=== PATIENT | female | born 1995 | race Caucasian/White ===

== ENCOUNTER → 2020-05-28 11:01 | Outpatient (CLI) | payer OTHER, SELFPAY ==
[2020-05-28 12:36] LABS: Add Manual Diff / Slide Review NO; Basophils Absolute Auto 0 /uL (0-100); Basophils Percent Auto 0.2 % (0-2); Eosinophils Absolute Auto 0 /uL (0-450); Eosinophils Percent Auto 0.5 % (2-4); Hematocrit 41.9 % (36-46); Lymphocytes Absolute Auto 1200 /uL (1100-4500); Lymphocytes Percent Auto 17.9 % (25-40); Mean Corpuscular HGB Conc 33.4 % (30-36); Mean Corpuscular Hemoglobin 29.1 PG (26-34); Mean Corpuscular Volume 87.3 fL (80-100); Monocytes Absolute Auto 400 /uL (0-900); Monocytes Percent Auto 6.1 % (3-14); Neutrophils Absolute Auto 5100 /uL (1500-7000); Neutrophils Percent Auto 75.3 % (50-75); Platelet Count 244 X10^3/uL (150-400); Red Blood Cell Count 4.81 X10^6/uL (4.0-5.2); Red Cell Distribution Width 13.5 % (11.6-14.8); White Blood Cell Count 6.8 X10^3/uL (4.5-11.0)
[2020-05-28 14:17] LABS: Appearance Urine UA CLEAR; Bilirubin Urine UA NEGATIVE (NEGATIVE); Color Urine UA YELLOW; Glucose Urine UA NEGATIVE (Negative); Ketones Urine UA NEGATIVE (NEGATIVE); Leukocyte Esterase Urine UA NEGATIVE (NEGATIVE); Nitrite Urine UA NEGATIVE (Negative); Occult Blood Urine UA NEGATIVE (Negative); Protein Urine UA NEGATIVE (Negative); Specific Gravity Urine UA 1.015 (1.000-1.035); Urobilinogen Urine UA 0.2 E.U./dL (0.2)
[2020-05-28 21:01] LABS: Urine N gonorrhoeae NOT DETECTED
[2020-05-28 21:10] LABS: Urine Chlamydia NOT DETECTED
[2020-05-29 10:03] LABS: RPR Screen Non Reactive (Non Reactive)
[2020-05-29 11:14] LABS: Varicella IgG Antibody 1523 index (Immune >165)
[2020-05-29 19:32] LABS: Hepatitis B Surface Antigen NEGATIVE s/c (NEGATIVE); Rubella Antibody IgG 47.8 IU/mL (>15)
[2020-05-29 19:57] LABS: Hep C Virus Ab w/Reflex Quant NEGATIVE s/c (NEGATIVE)
[2020-05-30 16:59] LABS: HIV 1 & 2 Ab/Ag 4th Gen Combo NEGATIVE (NEGATIVE)
== END ==
PROVIDERS: PCP Specialist; Referring Provider Specialist; Visit Provider Specialist
DX: Z34.01 Encounter for supervision of normal first pregnancy, first trimester (principal); Z3A.08 8 weeks gestation of pregnancy
CPT/HCPCS: 36415; 80055; 81003; 86787; 86803; 86850; 86900; 86901; 87086; 87389; 87491; 87591

== ENCOUNTER → 2020-07-30 17:11 | Outpatient (CLI) | payer OTHER, SELFPAY ==
[2020-08-01 20:36] LABS: AFP, Serum 23.1 ng/mL (.); Estriol, Free 0.75 ng/mL (.); Inhibin A, Dimeric 149.79 pg/mL (.); Inhibin A, MoM 0.94 (.); Maternal Ethnicity Caucasian (.); Maternal Weight 154 lbs (.); Number of Fetuses No (.); OSBR Risk 1 IN 10000 (.); Results Report (.); Test Results *Screen Negative* (.); hCG, MoM 1.16 (.); hCG, Serum 37303 mIU/mL (.)
== END ==
PROVIDERS: Referring Provider Specialist; Visit Provider Specialist
DX: Z34.02 Encounter for supervision of normal first pregnancy, second trimester (principal); Z3A.17 17 weeks gestation of pregnancy
CPT/HCPCS: 36415; 82105; 82677; 84702; 86336

== ENCOUNTER → 2020-08-27 12:03 | Outpatient (CLI) | payer OTHER, SELFPAY ==
--- NOTE | 2020-08-27 12:04 | DI.US.S_ITS ---
PROCEDURE: US OB >= 14 WEEKS FETUS INDICATIONS: ANATOMY OUTSIDE/PRIOR DATING DATA: Last menstrual period (LMP): 04/01/2020. LMP-based estimated date of delivery (SHABNAM): 01/06/2021 . First dating scan (date and location): 05/28/2020 . Estimated date of delivery (SHABNAM) from first dating scan: 01/09/2021 . TECHNIQUE: Real-time scanning was performed of the fetus, with image documentation and biometric measurements. Endovaginal scanning: No COMPARISON: [facility], , OB >= 14 WEEKS FETUS, 07/30/2020, 16:59. FINDINGS: General: A single living intrauterine gestation is present. Presentation: Vertex. Placenta: Placental position is posterior , without previa. Amniotic fluid index: 15.2 cm, normal range is 5-24 cm. heart rate: 158 beats per minute. Maternal cervical canal: 3.5 cm long. Normal lower limit is 2.5 cm. biometrics: Biparietal diameter: 21 weeks 1 day Head circumference: 21 weeks 1 day Abdominal circumference: 21 weeks 1 day Femur length: 21 weeks 4 days Estimated gestational age from initial scan: 20 weeks 5 days Composite gestational age from present scan: 21 weeks 2 days Estimated weight and percentile: 416 g, 78th percentile Measurement variability for biometric dating: +/- 7 days from 14 weeks to 15 weeks 6 days gestation, +/- 10 days from 16 weeks to 21 weeks 6 days gestation, +/- 2 weeks from 22 weeks to 27 weeks 6 days gestation, +/- 3 weeks for 28 weeks gestation or later. weight reference: 4500 g or EFW >90/95% is considered macrosomia or large for gestational age. EFW <10% is small for gestational age. EFW 5% or less is considered intra-uterine growth restriction. Anatomic survey: Neuro: Ventricles are non-dilated at less than 10 mm. Cisterna magna is normal at 3-11 mm. Cerebellum is normal in size and morphology. Nuchal skin fold: Normal at less than 6 mm between 14-21 weeks gestational age. Face: Nose and lips, facial profile are normal. Spine: No evidence for spina bifida. Heart: 4-chambered heart is present, with normal ventricular outflow tracts. Diaphragm: Diaphragm is intact. Stomach: Left-sided stomach is present. Kidneys: No hydronephrosis. Normal is less than 5 mm in 2nd trimester, less than 7 mm in 3rd trimester. Cord: 3-vessel cord has orthotopic insertion. Bladder: Normal in size. Extremities: All 4 extremities identified. IMPRESSION: 1. Single living IUP redemonstrated and interval growth is normal. 2. Normal anatomic survey. Dictated by: Shaun Helton [facility] Interpreted: Krysta Nur MD on 08/27/2020 at 13:45 Approved by: Krysta Nur MD, PhD on 08/27/2020 at 14:50
== END ==
PROVIDERS: Referring Provider Specialist; Visit Provider Specialist
DX: Z34.92 Encounter for supervision of normal pregnancy, unspecified, second trimester (principal); Z3A.21 21 weeks gestation of pregnancy
CPT/HCPCS: 76811

== ENCOUNTER → 2020-09-24 12:17 | Outpatient (CLI) | payer OTHER, SELFPAY ==
[2020-09-24 14:14] LABS: Hematocrit 35.7 % (36-46); Hemoglobin 11.9 g/dL (12.0-16.0)
[2020-09-24 14:48] LABS: GTT (PREG) 1 Hour PP 50gm Dose 91 mg/dL (76-139)
== END ==
PROVIDERS: Referring Provider Specialist; Visit Provider Specialist
DX: O26.899 Other specified pregnancy related conditions, unspecified trimester (principal); Z67.91 Unspecified blood type, Rh negative
CPT/HCPCS: 36415; 82950; 85014; 85018; 86850

== ENCOUNTER 2020-11-06 17:31 | Outpatient (CLI) | payer OTHER, SELFPAY ==
--- NOTE | 2020-11-06 17:52 | PM.OBTRLD ---
Visit Information Visit Information Date of evaluation: 11/06/20 Primary OB Provider: Soledad Hayes Reason for Evaluation: Yes non-stress test non-stress test reason: other ( tachycardia heard in office) Comments/Additional reasons for admission: Patient feeling tachycardic and short of breath. Recent all day ER evaluation with no specific cause of her symptoms found Vital Signs Vital Signs: Patient's pulse is in the 80 and 90s, oxygenation 97%, PFSH Medical History (Updated 11/06/20 @ 17:55 by Soledad Hayes MD) Acne Allergic rhinitis Anxiety Asthma Depression Ovarian cyst Surgical History (Updated 05/21/20 @ 10:41 by Leonarda Link RN) History of esophagogastroduodenoscopy (EGD) Family History (Updated 05/22/20 @ 19:03 by Lesia Edgar) Grandfather Age: 79 Heart disease Hypertension High cholesterol Grandfather Age: 82 Cancer High cholesterol Prostate cancer Melanoma Stroke Grandmother Age: 80 Cancer Grandmother No problems noted. Mother Migraine Asthma Father Heart palpitations Sister Asthma Social History marital status: household members: spouse lives independently: Yes pets and animals: Yes (X 1 dog) education level: college occupational status: employed current occupational exposures/hazards: Yes silviano/oriental orthodox: [employer] special silviano needs: No Smoking Status: Never smoker second hand exposure: No alcohol intake: former substance use type: does not use Review of Systems Review of Systems Narrative: Patient is feeling short of breath. She has been having episodes greater than an hour feeling her pulse be quite high. She was having some chest pain that took her to the emergency room but not currently. No diarrhea. Patient unable to sleep last night. No cough. Patient has been using her inhaler for her asthma without any improvement Evaluation Evaluation Baseline heart rate: 140 Variability: Moderate (11-25) monitor accelerations: Present monitor decelerations: Absent Contraction Frequency (minutes): 0 Diagnosis, Plan/Disposition Final Diagnosis (1) Tachycardia determined by examination of pulse: Status: Acute (2) Shortness of breath during : Status: Acute Plan/Disposition Plan: Patient not tachycardic and oxygenation normal. OB Disposition: home
== END 2020-11-06 18:00 | disposition home or self-care (01) ==
LOC: LABOR 17:43 → OB 11-10 06:46
PROVIDERS: Referring Provider Specialist; Visit Provider Specialist
DX: O26.893 Other specified pregnancy related conditions, third trimester (principal); R00.0 Tachycardia, unspecified; Z3A.31 31 weeks gestation of pregnancy
CPT/HCPCS: 59025; G0378; G0379

== ENCOUNTER → 2020-12-12 13:19 | Outpatient (CLI) | payer OTHER, SELFPAY ==
[2020-12-13 10:59] LABS: Strep Grp B PCR NEG for Grp B Strep
== END ==
PROVIDERS: Visit Provider Specialist
DX: Z34.03 Encounter for supervision of normal first pregnancy, third trimester (principal); Z3A.36 36 weeks gestation of pregnancy
CPT/HCPCS: 87653

== ENCOUNTER 2021-01-03 13:56 | Inpatient (IN) | payer OTHER, SELFPAY ==
[2021-01-03] MEDS: LACTATED RINGERS 1,000 ML 100 ML IV (15:30)
--- NOTE | 2021-01-03 15:37 | P.HPOB_ITS ---
OB HPI Date/Time Date of admission: 01/03/21 Date Patient Seen: 01/03/21 Time Patient Seen: 15:37 History of Present Condition Chief complaint: rule out labor : 1 Para: 0 Estimated Date of Delivery: 01/06/21 Narrative: Taryn Sue is a 25 year old @39+4 presenting in spontaneous labor. She reports that contractions began early in the AM on 01/02, and have closely gotten more painful and close together, now every 4-5 minutes. She reports good movement, no bleeding or loss of fluid, and no other symptoms or concerns. Her has been obstetrically uncomplicated, though she has been monitored for palpitations with a negative echo and a holtor monitor which has not gotten results back. 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 History of Present care: good care, initiated at week # (8), number of visits (13) and pounds weight gain (32) Dating criteria: LMP confirmed by 1st trimester US Ultrasounds: normal mid trimester US Preadmission Labs Blood type: B (-) negative -: Antibody screen: negative, GBS status: negative, HBsAG: negative, HIV: negative and RPR/VDLR: negative -: Chlamydia screen: not detected and Gonorrhea screen: not detected -: Rubella: immune and Varicella: immune Quad screen: Normal Urine: no growth 1 hr GTT: 91 Evaluation Evaluation Baseline heart rate: 135 Variability: Moderate (11-25) monitor accelerations: Present Monitor Decelerations: Absent Contraction Frequency (minutes): 4 Category of Tracing: Reactive Status: Category l Cervical dilation (cm): 8 Cervical effacement (%): 100 station: +2 Comments: EFW 8# PFSH Medical History Acne Allergic rhinitis Anxiety Asthma Depression Ovarian cyst Surgical History History of esophagogastroduodenoscopy (EGD) Family History Grandfather Age: 79 Heart disease Hypertension High cholesterol Grandfather Age: 82 Cancer High cholesterol Prostate cancer Melanoma Stroke Grandmother Age: 80 Cancer Grandmother No problems noted. 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 special silviano needs: No Smoking Status: Never smoker second hand exposure: No alcohol intake: former substance use type: does not use Meds Home Medications and Allergies Home Medications Medication Instructions Recorded Confirmed Type albuterol sulfate 90 mcg/actuation 1 inhalation INHALATION Q4-6H PRN 05/21/20 12/31/20 History breath activated powder inhaler cetirizine 10 mg disintegrating 10 mg PO DAILY 05/21/20 12/31/20 History tablet prenat.vits,oni,[id number]-[id number] 1 tab PO DAILY 05/21/20 12/31/20 History citalopram 20 mg tablet 20 mg PO DAILY #30 tab 11/04/20 12/31/20 Rx labetalol 100 mg tablet See Rx Instructions .ROUTE 12/05/20 12/31/20 Rx .COMPLEX #60 tab Allergies Allergy/AdvReac Type Severity Reaction Status Date / Time gabapentin [GABAPENTIN] Allergy Severe Blurry Unverified 12/31/20 16:54 vision and excessive weight gain pineapple Allergy Mild Hives Verified 12/31/20 16:54 adhesive tape AdvReac Severe Rash Verified 12/31/20 16:54 paint Allergy Mild Hives Uncoded 12/31/20 16:54 tea tree oil Allergy Mild Hives to Uncoded 12/31/20 16:54 patch test area Review of Systems Constitutional Constitutional: Reports system reviewed and no additional complaints, except as documented Cardiovascular Cardiovascular: Reports system reviewed and no additional complaints, except as documented Respiratory Respiratory: Reports system reviewed and no additional complaints, except as documented Gastrointestinal Gastrointestinal: Reports system reviewed and no additional complaints, except as documented Neurologic Neurologic: Reports system reviewed and no additional complaints, except as documented Exam Vital Signs (past 8 hours): 111/71, HR 83 Const General: cooperative, healthy appearing, comfortable and well groomed GI Palpation: soft and No tender Extrem General: normal to inspection Objective Labs Result Diagrams: 01/03/21 15:30 Assessment and Plan Assessment and Plan Assessment and Plan narrative: This patient is admitted in active labor. She is receiving an epidural, and will be admitted per the usual protocol. Anticipate .
[2021-01-03 15:38] VITALS: BP 111/71
[2021-01-03 16:23] LABS: Add Manual Diff / Slide Review NO; Basophils Absolute Auto 0 /uL (0-100); Basophils Percent Auto 0.2 % (0-2); Eosinophils Absolute Auto 100 /uL (0-450); Eosinophils Percent Auto 0.5 % (2-4); Hematocrit 34.5 % (36-46); Hemoglobin 11.5 g/dL (12.0-16.0); Lymphocytes Absolute Auto 1400 /uL (1100-4500); Lymphocytes Percent Auto 11.2 % (25-40); Mean Corpuscular HGB Conc 33.2 % (30-36); Mean Corpuscular Hemoglobin 27.8 PG (26-34); Mean Corpuscular Volume 83.8 fL (80-100); Monocytes Absolute Auto 700 /uL (0-900); Monocytes Percent Auto 5.7 % (3-14); Neutrophils Absolute Auto 10400 /uL (1500-7000); Neutrophils Percent Auto 82.4 % (50-75); Platelet Count 242 X10^3/uL (150-400); Red Blood Cell Count 4.12 X10^6/uL (4.0-5.2); Red Cell Distribution Width 14.1 % (11.6-14.8); White Blood Cell Count 12.6 X10^3/uL (4.5-11.0)
[2021-01-03 17:20] LABS: COVID19 - ADMIT (NP swab/PCR) Negative (Negative)
--- NOTE | 2021-01-03 18:32 | PM.OBPRVD ---
Events: Meconium Stained Fluid Labor & Delivery Delivery date: 01/03/21 Intrapartal Events: Acceleration Cervical ripening method: none Induction method: none Delivery augmentation: rupture of membranes (at 10cm) Delivery monitor: external FHT and external uterine Route of delivery: L&D Laceration Description: Perineal - 2nd Degree (multiple apices) Delivery repair: vicryl Estimated blood loss (mL): 250 Anesthesia Type: Epidural Narrative: This patient was admitted in active labor at 8cm, and received an epidural for pain control. She progressed unaugmented, and after AROM at , underwent an uncomplicated 30 minute 2nd stage. She was delivered of a healthy baby boy without complication, shoulders delivered with ease. Apgars were 8+9 and weight was 7#10. Perineal hot compresses were administered throughout the 2nd stage, and she had a 2nd degree perineal lacerations with an apex extending up each sulcus bilaterally, which was repaired with 2-0 and 3-0 vicryl. Her intrapartum and immediate course were uncomplicated. Baby 1: Infant gender: Male Presentation: vertex Position: Left Occiput Anterior Placenta delivery description: Spontaneous Cord Vessel Description: 3 Vessels score (1 min): 8 score (5 min): 9 weight: 7 lb 10 oz Plan for aftercare: Routine care
[2021-01-03] MEDS: IBUPROFEN 600 MG TABLET PO (20:11)
[2021-01-03] MEDS: DERMOPLAST SPRAY 20% 60 ML 1 SPRAY TOP (23:29)
[2021-01-03] MEDS: LANOLIN OINT 7 GM 1 APPLIC TOP (23:29)
[2021-01-04] MEDS: ACETAMINOPHEN 325 MG TABLET 650 MG PO (02:13)
[2021-01-04] MEDS: IBUPROFEN 600 MG TABLET PO ×3 (02:13→13:51)
[2021-01-04 08:00] VITALS: TEMP 37
--- NOTE | 2021-01-04 10:42 | PM.OBDS.1 ---
Discharge Providers Provider Date of admission: 01/03/21 13:56 Discharge Date: 01/04/21 Primary care physician: Doctor Jeramy MD Consults: 01/03/21 14:59 Consult to Anesthesiology Urgent Comment: Consulting Provider: Anesthesiologist Reason for consultation: Epidural Has provider been notified: No 01/04/21 18:25 Consult to Tactical Response Group Officer Routine Comment: Discharge provider: Talia Alonso MD Summary Hospital Course Date Patient Seen: 01/04/21 Time Patient Seen: 09:45 Diagnoses: Status post uncomplicated vaginal delivery Hospital Course: This patient is a 25-year-old now , day 1 status post uncomplicated vaginal delivery. The patient presented in active labor, 8 it. She received an for dural and progressed unaugmented. After a 30 minute 2nd stage, was delivered of a healthy baby boy, Apgars 8 and 9, weight 7 lb 10 oz. there was no nuchal cord and the shoulders delivered with ease. The placenta delivered intact shortly thereafter. The patient had a second-degree perineal laceration, though with multiple apices requiring a somewhat extensive repair. Her immediate course was uncomplicated, and she was discharged on post day 1 with routine follow-up and precautions. Peripartum Data Infant Delivery Method: Natural Vaginal Laceration Description: Perineal - 2nd Degree Procedures: Vaginal delivery complications: none [place] 1: Gender: Male Disposition of : home Status at Discharge Cognitive/behavioral status at discharge: oriented Time Spent with Patient Time attestation: Total time spent providing and/or coordinating discharge services: Time spent: Less than 30 minutes Objective Labs Result Diagrams: 01/03/21 15:30 Labs: Laboratory Results - last 24 hr 01/03/21 01/03/21 01/03/21 15:30 15:30 15:30 WBC 12.6 H RBC 4.12 Hgb 11.5 L Hct 34.5 L MCV 83.8 MCH 27.8 MCHC 33.2 RDW 14.1 Plt Count 242 Neut % (Auto) 82.4 H Lymph % (Auto) 11.2 L [place] % (Auto) 5.7 Eos % (Auto) 0.5 L Baso % (Auto) 0.2 Neut # (Auto) 40976 H Lymph # (Auto) 1400 [place] # (Auto) 700 Eos # (Auto) 100 Baso # (Auto) 0 SARS-CoV-2 (PCR) Negative Blood Type B Negative Antibody Screen Positive Antibody Identification Anti-D Maternal Bleed 01/04/21 07:28 WBC RBC Hgb Hct MCV MCH MCHC RDW Plt Count Neut % (Auto) Lymph % (Auto) [place] % (Auto) Eos % (Auto) Baso % (Auto) Neut # (Auto) Lymph # (Auto) [place] # (Auto) Eos # (Auto) Baso # (Auto) SARS-CoV-2 (PCR) Blood Type Antibody Screen Antibody Identification Maternal Bleed Negative Exam Narrative Exam Narrative: Patient resting in bed, comfortable. Reports ambulating, voiding, moderate lochia, passing flatus. Good pain control with ibuprofen. . No PIH symptoms, no other symptoms or concerns. Resp Effort & Inspection: normal respiratory effort Auscultation: clear to auscultation bilaterally Cardio Rate: regular rate Rhythm: regular rhythm GI Palpation: soft and No tender (Fundus firm, well below U) External Female Exam: normal external appearance (Repair well approximated, no induration or erythema) Discharge Plan Discharge Plan Patient Disposition: Home Discharge orders & Medications Prescriptions: New docusate sodium 100 mg capsule 100 mg PO BID Qty: 30 RF: 1 Continued prenat.vits,oni,[id number] Tablet 1 tab PO DAILY RF: 0 Zyrtec 10 mg tablet,disintegrating 10 mg PO DAILY RF: 0 citalopram [Celexa] 20 mg tablet 20 mg PO DAILY Qty: 30 RF: 3 labetalol 100 mg tablet See Rx Instructions .ROUTE .COMPLEX Qty: 60 RF: 0 albuterol sulfate 90 mcg/actuation aerosol powdr breath activated 1 inhalation INHALATION Q4-6H PRNRF: 0 Follow up/Referrals: Soledad Hayes MD [Physician] - (4-6 weeks for visit) Diet/Activity/Treatments Diet: Regular Activity: Nothing in the vagina for 6 weeks. Avoid lifting more than 10 lb for 6 weeks. If you have increasing bleeding, fevers, chills, nausea, vomiting, headaches or visual changes, or any other symptoms, call the clinic number or come to the emergency room. Skin/Wound/Dressing Care Skin care: Keep perineum clean and dry. Report to your healthcare provider any signs of infection, such as:: chills, fever, night sweats, increased pain, unusual drainage and unusual redness Visit Report/Discharge Packet Instructions: DI for Labor and Delivery, Vaginal Discharge Data Primary Care Provider: Miscellaneous,Doctor Attending Provider: Soledad Hayes
[2021-01-04 11:01] VITALS: BP 111/71; PULSE 80
[2021-01-04] MEDS: PRENATAL VIT,CALC/IRON/FOLIC 1 TABLET 1 TAB PO (11:01)
[2021-01-04] MEDS: DOCUSATE 100 MG CAPSULE PO (11:01)
[2021-01-04] MEDS: LABETALOL 100 MG TABLET PO (11:01)
[2021-01-04 13:51] VITALS: TEMP 36.8
== END 2021-01-04 16:30 | disposition home or self-care (01) | DRG 807 ==
PROVIDERS: Admitting Provider Specialist; Referring Provider Specialist; Visit Provider Specialist
DX: O70.1 Second degree perineal laceration during delivery (principal); Z37.0 Single live birth; Z3A.39 39 weeks gestation of pregnancy; O77.0 Labor and delivery complicated by meconium in amniotic fluid; O75.89 Other specified complications of labor and delivery; J45.909 Unspecified asthma, uncomplicated; R00.2 Palpitations; Z20.822 Contact with and (suspected) exposure to COVID-19
CPT/HCPCS: 01967; 36415; 59050; 59400; 59409; 85025; 85461; 86850; 86870; 86900; 86901; 87635; C9803; G0378; G0379

== ENCOUNTER → 2022-06-10 12:35 | Outpatient (CLI) | payer OTHER, SELFPAY ==
--- NOTE | 2022-06-10 12:37 | DI.US.S_ITS ---
PROCEDURE: US PELVIC COMPLETE INDICATIONS: Irregular bleeding TECHNIQUE: Real-time scanning was performed of the pelvic organs, with image documentation. Additional endovaginal scanning was necessary due to incomplete visualization of the adnexal and endometrial structures by transabdominal scanning. COMPARISON: None. FINDINGS: Uterus: Uterus is anteverted and normal in size at 7.7 x 5.9 x 3.4 cm. The myometrium is homogeneous. Arcuate uterus. No fibroids seen. The endometrium measures 7 mm combined thickness. Ovaries: The right ovary measures 3.7 x 3.2 x 2.7 cm, with a calculated ovarian volume of 16 cc. The left ovary measures 3.9 x 2.1 x 1.8 cm, with a calculated ovarian volume of 8 cc. The ovaries have a normal sonographic appearance. Less than 12 follicles can be seen in each ovary. Dominant ovarian follicle or anechoic cyst measuring 1.9 cm on the right and 2.2 cm on the left. No adnexal masses are seen. Other: No pathologic free abdominal or pelvic fluid. IMPRESSION: 1. Endometrium measures 7 mm. 2. No fibroids. Suspect arcuate uterus. 3. No suspicious ovarian lesion. Small benign cysts or dominant follicles. We strive to produce accurate, complete, and clear reports of imaging services. To assist us in improving patient care, this report was composed using standard report templates and voice recognition software. Therefore, it may contain abnormal punctuation, insertions and/or omissions. Occasional wrong-word or sound-alike substitutions may occur. Though we review the report and make efforts to correct it, we do recommend that the report be read carefully in proper context to recognize any text inaccuracies. Dictated by: Red Karimi M.D. on 06/10/2022 at 15:54 Approved by: Red Karimi M.D. on 06/10/2022 at 16:03
== END ==
PROVIDERS: PCP Family Medicine; Referring Provider Specialist; Visit Provider Specialist
DX: N92.6 Irregular menstruation, unspecified (principal)
CPT/HCPCS: 76830; 76856; 93975; 93976

== ENCOUNTER → 2022-09-01 16:38 | Outpatient (CLI) | payer OTHER, SELFPAY ==
--- NOTE | 2022-09-01 16:43 | DI.US.S_ITS ---
PROCEDURE: US OB <= 14 WEEKS FETUS INDICATIONS: Dating and viability OUTSIDE/PRIOR DATING DATA: Last menstrual period (LMP): 06/28/2022. LMP-based estimated date of delivery (SHABNAM): 04/04/2023. First dating scan (date and location): 09/01/2022. Estimated date of delivery (SHABNAM) from first dating scan: 04/07/2023. The calculations are made using the clinical SHABNAM of 04/04/2023. TECHNIQUE: Real-time scanning was performed of the fetus and maternal pelvic organs, with image documentation. Endovaginal scanning was also performed to better visualize the fetus and maternal ovaries. COMPARISON: None FINDINGS: Embryo: [place]-rump length measuring 2.2 cm, gestational age 8 weeks 6 days Heart rate: 187 bpm A yolk sac is seen. No perigestational hemorrhage. Maternal organs: Ovaries are within normal limits. Probable right corpus luteum. Anechoic left ovarian cyst measuring 2.4 cm. IMPRESSION: 1. [place] living intrauterine at 8 weeks 6 days based on today's crown rump length. 2. No perigestational hemorrhage. We strive to produce accurate, complete, and clear reports of imaging services. To assist us in improving patient care, this report was composed using standard report templates and voice recognition software. Therefore, it may contain abnormal punctuation, insertions and/or omissions. Occasional wrong-word or sound-alike substitutions may occur. Though we review the report and make efforts to correct it, we do recommend that the report be read carefully in proper context to recognize any text inaccuracies. Dictated by: Red Karimi M.D. on 09/02/2022 at 11:23 Approved by: Red Karimi M.D. on 09/02/2022 at 11:25
== END ==
PROVIDERS: PCP Family Medicine; Referring Provider Obstetrics & Gynecology; Visit Provider Obstetrics & Gynecology
DX: Z3A.08 8 weeks gestation of pregnancy; Z36.87 Encounter for antenatal screening for uncertain dates
CPT/HCPCS: 76801; 76817

== ENCOUNTER → 2022-09-22 16:30 | Outpatient (CLI) | payer OTHER, SELFPAY ==
[2022-09-22 20:19] LABS: Appearance Urine UA CLEAR; Bilirubin Urine UA NEGATIVE (NEGATIVE); Color Urine UA YELLOW; Glucose Urine UA NEGATIVE (Negative); Ketones Urine UA NEGATIVE (NEGATIVE); Leukocyte Esterase Urine UA NEGATIVE (NEGATIVE); Nitrite Urine UA NEGATIVE (Negative); Occult Blood Urine UA NEGATIVE (Negative); Protein Urine UA NEGATIVE (Negative); Specific Gravity Urine UA 1.015 (1.000-1.035); Urobilinogen Urine UA 0.2 E.U./dL (0.2)
[2022-09-22 20:20] LABS: pH Urine UA 6.5 (4.5-8.0)
[2022-09-22 21:47] LABS: Urine N gonorrhoeae NOT DETECTED
[2022-09-22 21:57] LABS: Urine Chlamydia NOT DETECTED
== END ==
PROVIDERS: PCP Family Medicine; Visit Provider Obstetrics & Gynecology
DX: Z34.81 Encounter for supervision of other normal pregnancy, first trimester (principal)
CPT/HCPCS: 81003; 87086; 87491; 87591

== ENCOUNTER → 2022-09-22 16:38 | Outpatient (CLI) | payer OTHER, SELFPAY ==
[2022-09-22 17:08] LABS: Specimen Label NATERA
[2022-09-22 17:42] LABS: Add Manual Diff / Slide Review NO; Basophils Absolute Auto 0 /uL (0-100); Basophils Percent Auto 0.1 % (0-2); Eosinophils Absolute Auto 100 /uL (0-450); Eosinophils Percent Auto 1.7 % (2-4); Hematocrit 37.1 % (36-46); Hemoglobin 12.7 g/dL (12.0-16.0); Lymphocytes Absolute Auto 1700 /uL (1100-4500); Lymphocytes Percent Auto 23.8 % (25-40); Mean Corpuscular HGB Conc 34.4 % (30-36); Mean Corpuscular Hemoglobin 30.4 PG (26-34); Mean Corpuscular Volume 88.5 fL (80-100); Monocytes Absolute Auto 400 /uL (0-900); Monocytes Percent Auto 6.1 % (3-14); Neutrophils Absolute Auto 4900 /uL (1500-7000); Neutrophils Percent Auto 68.3 % (50-75); Platelet Count 214 X10^3/uL (150-400); Red Blood Cell Count 4.19 X10^6/uL (4.0-5.2); Red Cell Distribution Width 13.2 % (11.6-14.8); White Blood Cell Count 7.2 X10^3/uL (4.5-11.0)
[2022-09-22 18:30] LABS: Free T3, Triiodothyronine Free 3.56 pg/mL (2.77-5.27); Free T4, Direct Thyroxine 1.17 ng/dL (0.78-2.19)
[2022-09-22 18:43] LABS: Thyroid Stimulating Hormone 0.691 uIU/mL (0.47-4.68)
[2022-09-23 15:57] LABS: Hepatitis B Surface Antigen NEGATIVE s/c (NEGATIVE)
[2022-09-23 16:29] LABS: HIV 1 & 2 Ab/Ag 4th Gen Combo NEGATIVE (NEGATIVE); Hep C Virus Ab w/Reflex Quant NEGATIVE s/c (NEGATIVE)
[2022-09-24 08:31] LABS: Varicella IgG Antibody 920 index (Immune >165)
[2022-09-25 07:09] LABS: RPR Screen Non Reactive (Non Reactive)
== END ==
PROVIDERS: PCP Family Medicine; Referring Provider Obstetrics & Gynecology; Visit Provider Obstetrics & Gynecology
DX: Z34.81 Encounter for supervision of other normal pregnancy, first trimester (principal)
CPT/HCPCS: 36415; 80055; 81003; 84439; 84443; 84481; 86787; 86803; 86850; 86900; 86901; 87086; 87389; 87491; 87591

== ENCOUNTER → 2022-10-22 13:33 | Outpatient (CLI) | payer OTHER, SELFPAY ==
[2022-10-26 20:45] LABS: AFP Value 53.5 ng/mL (.); Gest Age on Col Date 16.6 weeks (.); Insulin Dep Diabetes No (.); OSBR Risk 1IN 2886 (.); Results Report (.); Test Results *Screen Negative* (.)
== END ==
PROVIDERS: PCP Family Medicine; Referring Provider Obstetrics & Gynecology; Visit Provider Obstetrics & Gynecology
DX: Z34.82 Encounter for supervision of other normal pregnancy, second trimester (principal); Z3A.16 16 weeks gestation of pregnancy
CPT/HCPCS: 36415; 82105

== ENCOUNTER → 2022-11-15 16:27 | Outpatient (CLI) | payer OTHER, SELFPAY ==
--- NOTE | 2022-11-15 16:30 | DI.US.S_ITS ---
PROCEDURE: US OB >= 14 WEEKS FETUS INDICATIONS: 20 WEEK ANATOMY OUTSIDE/PRIOR DATING DATA: Last menstrual period (LMP): 06/28/2022. LMP-based estimated date of delivery (SHABNAM): 04/04/2023. First dating scan (date and location): 09/01/2022. Estimated date of delivery (SHABNAM) from first dating scan: 04/07/2023. The calculations are made using the clinical SHABNAM of 04/04/2023. TECHNIQUE: Real-time scanning was performed of the fetus, with image documentation and biometric measurements. COMPARISON: [facility], OB <= 14 WEEKS FETUS, 09/01/2022, 17:05. FINDINGS: General: A single living intrauterine gestation is present. Presentation: Vertex. Placenta: Placental position is anterior, without previa. Placental Cox measuring 2.9 cm. Amniotic fluid index: 9.9 cm, normal range is 5-24 cm. Single deepest vertical pocket is 2.8 cm. heart rate: 168 beats per minute. Maternal cervical canal: 4.9 cm long. Normal lower limit is 2.5 cm. biometrics: Biparietal diameter: 4.6 cm, 20 weeks 0 days Head circumference: 17.3 cm, 19 weeks 6 days Abdominal circumference: 15.3 cm, 20 weeks 4 days Femur length: 3.2 cm, 19 weeks 6 days Clinically estimated gestational age: 20 weeks 0 days Composite gestational age from present scan: 20 weeks 1 day Estimated weight and percentile: 338 g, 57th percentile Anatomic survey: Neuro: Ventricles are non-dilated at less than 10 mm. Cisterna magna is normal at 3-11 mm. Cerebellum is normal in size and morphology. Nuchal skin fold: Normal at less than 6 mm between 14-21 weeks gestational age. Face: Not well seen. Spine: No evidence for spina bifida. Heart: 4-chambered heart is present. RVOT is not well seen. Diaphragm: Diaphragm is intact. Stomach: Left-sided stomach is present. Kidneys: No hydronephrosis. Normal is less than 5 mm in 2nd trimester, less than 7 mm in 3rd trimester. Cord: 3-vessel cord has orthotopic insertion. Bladder: Normal in size. Extremities: All 4 extremities identified. IMPRESSION: 1. [place] living intrauterine at 20 weeks 1 day based on today's ultrasound. Fetus is in the 57th percentile for weight. 2. Normal amniotic fluid. Placenta is within normal limits. Placental Cox measuring 2.9 cm. 3. face and RVOT are not well seen. Otherwise normal anatomic survey. Recommend follow-up OB ultrasound. We strive to produce accurate, complete, and clear reports of imaging services. To assist us in improving patient care, this report was composed using standard report templates and voice recognition software. Therefore, it may contain abnormal punctuation, insertions and/or omissions. Occasional wrong-word or sound-alike substitutions may occur. Though we review the report and make efforts to correct it, we do recommend that the report be read carefully in proper context to recognize any text inaccuracies. Dictated by: Red Karimi M.D. on 11/16/2022 at 9:59 Approved by: Red Karimi M.D. on 11/16/2022 at 10:07
== END ==
PROVIDERS: PCP Family Medicine; Referring Provider Obstetrics & Gynecology; Visit Provider Obstetrics & Gynecology
DX: Z34.82 Encounter for supervision of other normal pregnancy, second trimester (principal); Z3A.20 20 weeks gestation of pregnancy
CPT/HCPCS: 76811

== ENCOUNTER → 2022-12-02 17:02 | Outpatient (CLI) | payer OTHER, SELFPAY ==
--- NOTE | 2022-12-02 17:03 | DI.US.S_ITS ---
PROCEDURE: US OB FOLLOW UP INDICATIONS: Face and RVOT not seen well on anatomy scan OUTSIDE/PRIOR DATING DATA: Last menstrual period (LMP): 06/28/2022. LMP-based estimated date of delivery (SHABNAM): 04/04/2023. First dating scan (date and location): 09/01/2022. Estimated date of delivery (SHABNAM) from first dating scan: 04/07/2023. The calculations are made using the clinical SHABNAM of 04/04/2023. TECHNIQUE: Real-time scanning was performed of the fetus, with image documentation. COMPARISON: [facility], OB >= 14 WEEKS FETUS, 11/15/2022, 16:41. FINDINGS: General: A single living intrauterine gestation is present. Presentation: [place]. Placenta: Placental position is anterior, without previa. Amniotic fluid index: 15.6 cm, normal range is 5-24 cm. Single deepest vertical pocket is 5.1 cm. heart rate: 147 beats per minute. Maternal cervical canal: 4.4 cm long. Normal lower limit is 2.5 cm. Clinically estimated gestational age: 22 weeks 3 days Anatomic survey: Face: Nose and lips, facial profile are normal. Heart: 4-chambered heart is present, with normal ventricular outflow tracts. Stomach: Left-sided stomach is present. Bladder: Normal in size. IMPRESSION: 1. [place] living intrauterine at 22 weeks 3 days based on prior dating. 2. Normal placenta and amniotic fluid. 3. Normal heart and face. We strive to produce accurate, complete, and clear reports of imaging services. To assist us in improving patient care, this report was composed using standard report templates and voice recognition software. Therefore, it may contain abnormal punctuation, insertions and/or omissions. Occasional wrong-word or sound-alike substitutions may occur. Though we review the report and make efforts to correct it, we do recommend that the report be read carefully in proper context to recognize any text inaccuracies. Dictated by: Red Karimi M.D. on 12/03/2022 at 11:12 Approved by: Red Karimi M.D. on 12/03/2022 at 11:29
== END ==
PROVIDERS: PCP Family Medicine; Referring Provider Obstetrics & Gynecology; Visit Provider Obstetrics & Gynecology
DX: Z36.2 Encounter for other antenatal screening follow-up (principal); Z3A.22 22 weeks gestation of pregnancy
CPT/HCPCS: 76816

== ENCOUNTER → 2022-12-28 12:41 | Outpatient (CLI) | payer OTHER, SELFPAY ==
[2022-12-28 15:35] LABS: Hemoglobin 11.4 g/dL (12.0-16.0)
[2022-12-28 15:45] LABS: GTT (PREG) 1 Hour PP 50gm Dose 92 mg/dL (76-139)
== END ==
PROVIDERS: PCP Family Medicine; Referring Provider Obstetrics & Gynecology; Visit Provider Obstetrics & Gynecology
DX: O26.899 Other specified pregnancy related conditions, unspecified trimester (principal); Z3A.26 26 weeks gestation of pregnancy; Z67.91 Unspecified blood type, Rh negative
CPT/HCPCS: 36415; 82950; 85014; 85018; 86850

== ENCOUNTER → 2023-03-09 15:39 | Outpatient (CLI) | payer OTHER, SELFPAY ==
[2023-03-10 15:35] LABS: Strep Grp B PCR NEG for Grp B Strep
== END ==
PROVIDERS: PCP Family Medicine; Visit Provider Obstetrics & Gynecology
DX: Z34.83 Encounter for supervision of other normal pregnancy, third trimester (principal); Z3A.36 36 weeks gestation of pregnancy
CPT/HCPCS: 87653

== ENCOUNTER 2023-04-05 17:00 | Observation (INO) | payer OTHER, SELFPAY ==
[2023-04-05] MEDS: MORPHINE 4 MG/ML INJ IM (20:40)
[2023-04-05] MEDS: hydrOXYzine 50 MG/ML INJ 25 MG IM (20:40)
== END 2023-04-05 21:20 | disposition home or self-care (01) ==
LOC: LABOR 17:07
PROVIDERS: Admitting Provider Obstetrics & Gynecology; PCP Family Medicine; Referring Provider Obstetrics & Gynecology; Visit Provider Obstetrics & Gynecology
DX: O48.0 Post-term pregnancy (principal); O47.1 False labor at or after 37 completed weeks of gestation; Z3A.40 40 weeks gestation of pregnancy
CPT/HCPCS: 59025; 59050; 84112; G0378; G0379; J2270; J3410

== ENCOUNTER 2023-04-06 07:49 | Inpatient (IN) | payer BC, OTHER, SELFPAY ==
--- NOTE | 2023-04-06 08:00 | PM.OBHP.1 ---
OB HPI Date/Time Date of admission: 04/06/23 Date Patient Seen: 04/06/23 Time Patient Seen: 08:00 History of Present Condition Chief complaint: IUP, 40+2 wks EGA, GBS NEG, Rh NEG, Hx rapid labor : 2 Para: 1 Estimated Date of Delivery: 04/04/23 Estimated Gestational Age (weeks): 40+2 Narrative: Taryn Sue is a 27 year old secundigravida admitted for induction at 40+ 2 weeks with favorabe Montemayor score, prodromal labor, and a history of rapid 1st labor (4 hours). Patient's course has been largely uneventful with good early dating and appropriate milestones throughout. She is Rh negative and did receive RhoGAM at 28 weeks. Her GBS is negative. Indications Indication for induction OB: history of rapid labor History of Present care: good care Dating criteria: LMP confirmed by 1st trimester US Ultrasounds: normal 1st trimester US and normal mid trimester US Obstetrical complications: none Preadmission Labs Blood type: B (-) negative -: Antibody screen: negative, GBS status: negative, HBsAG: negative, HIV: negative and RPR/VDLR: negative -: Chlamydia screen: not detected and Gonorrhea screen: not detected -: Rubella: immune and Varicella: immune HCT: 33.0 HCAB: negative PAP: Normal Quad screen: Normal (AFP Negative) Cell-free DNA: Low risk male 1 hr GTT: 92 Prior (ies) History: 12/2020 Evaluation Evaluation Baseline heart rate: 145 Variability: Moderate (11-25) monitor accelerations: Present Monitor Decelerations: Absent Contraction Frequency (minutes): 20 Uterine Contraction Intensity: Mild Category of Tracing: Reactive Status: Category l Dilation (cm): 3 Effacement (%): 60 Dilation: 3-4 cm Effacement: 60-70% station: -2 Position of cervix: anterior Consistency: soft Montemayor score: 9 PFSH Medical History (Updated 04/02/23 @ 13:32 by Luca Hoffman MD) Acne Allergic rhinitis Anxiety Asthma Depression Ovarian cyst Shortness of breath during Tachycardia determined by examination of pulse Surgical History (Updated 07/29/22 @ 10:43 by Rossana Barraza RN) History of esophagogastroduodenoscopy (EGD) History of removal of cyst Family History (Updated 07/29/22 @ 10:47 by Rossana Barraza RN) Grandfather Age: 82 Heart disease Hypertension High cholesterol Diabetes mellitus Grandfather Cancer High cholesterol Prostate cancer Melanoma Stroke Alzheimer disease Grandmother Age: 83 Breast cancer Grandmother Alzheimer disease Mother Migraine Asthma Father Heart palpitations Sister Asthma Family/Other Brain cancer Social History marital status: household members: spouse and children lives independently: Yes housing: house pets and animals: Yes (2 dogs) education level: college 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) current occupational exposures/hazards: Yes silviano/restoration: [employer] special silviano needs: No travel history: over 6 months ago seatbelt use: always water heater temp set < 120 deg: Yes working smoke detector in home: Yes fire extinguisher in home: Yes carbon monox detector in home: Yes firearms in home: No do you feel safe at home: Yes Smoking Status: Never smoker second hand exposure: No alcohol intake: former (rarely when not ) substance use type: does not use during the past year weight has: decreased > 10 lbs (intentional) well-balanced diet: about half the time daily servings fruits/ve-4 caffeine: Yes (trying to stop, aware of 200mg limit) Type(s) of exercise: none and walking duration: 15-30 minutes/day Meds Home Medications and Allergies Home Medications Medication Instructions Recorded Confirmed Type albuterol sulfate 90 mcg/actuation 1 inhalation inhalation Q4-6H PRN 05/21/20 04/01/23 History breath activated powder inhaler cetirizine 10 mg disintegrating 10 mg PO DAILY 05/21/20 04/01/23 History tablet (Zyrtec) prenat.vits,oni,gjt-vnoy-kntsm 1 tab PO DAILY 05/21/20 04/01/23 History vzchhqg-fmrmojlsq-sqim 333 mg-133 1 tab PO DAILY 07/29/22 04/01/23 History mg-5 mg tablet cholecalciferol (vitamin D3) 125 125 mcg PO DAILY 07/29/22 04/01/23 History mcg (5,000 unit) capsule omega 3-ovp-zcj-fish oil 1,200 mg 1 cap PO DAILY 07/29/22 04/01/23 History (144 mg-216 mg) capsule (Fish Oil) ondansetron 4 mg disintegrating 4 mg PO Q6H PRN nausea and 09/08/22 04/01/23 Rx tablet vomiting #20 tabs labetalol 100 mg tablet 100 mg PO BID #60 tabs 01/05/23 04/01/23 Rx citalopram 20 mg tablet (Celexa) 20 mg PO DAILY #30 tabs 02/28/23 04/01/23 Rx Allergies Allergy/AdvReac Type Severity Reaction Status Date / Time gabapentin [GABAPENTIN] Allergy Severe Blurry Unverified 04/01/23 15:31 vision and excessive weight gain pineapple Allergy Mild Hives Verified 04/01/23 15:31 adhesive tape AdvReac Severe Rash Verified 04/01/23 15:31 paint Allergy Mild Hives Uncoded 04/01/23 15:31 tea tree oil Allergy Mild Hives to Uncoded 04/01/23 15:31 patch test area Review of Systems Review of Systems Narrative: Problem-specific ROS positives included in HPI OB Exam Vital signs Blood Pressure: 117/70 Pulse Rate: 96 Temperature: 97.0 F HENMT Head: normal to inspection, normocephalic and atraumatic Eyes General: appearance normal, both eyes and all related structures Resp Effort & Inspection: normal respiratory effort and able to speak in complete sentences Auscultation: clear to auscultation bilaterally Cardio Rate: regular rate Rhythm: regular rhythm Heart Sounds: S1 normal, S2 normal and no murmurs Extremities Lower extremity: Yes normal to inspection GI Inspection: normal to inspection Palpation: Yes soft and Yes no hepatosplenomegaly Uterus Location (Fundal Height): 38 Presentation: vertex Estimated Weight (lbs): 8 Assessment and Plan Assessment and Plan Assessment and Plan narrative: ASSESSMENT 1. Intrauterine , 40+ 2 weeks gestational age 2. Rh-negative status 3. Anemia of 4. GBS negative status PLAN 1. Admit for induction 2. See admission orders
[2023-04-06 08:09] VITALS: BP 117/70; PULSE 96; TEMP 36.1
[2023-04-06] MEDS: LACTATED RINGERS 1,000 ML 100 ML IV ×2 (08:36→12:18)
[2023-04-06] MEDS: OXYTOCIN PREMIX 30 UNIT/500 ML PLAST..BAG IV (08:37)
[2023-04-06 08:52] VITALS: BP 117/70
[2023-04-06 09:06] LABS: Add Manual Diff / Slide Review NO; Basophils Absolute Auto 0 /uL (0-100); Basophils Percent Auto 0.2 % (0-2); Eosinophils Absolute Auto 100 /uL (0-450); Eosinophils Percent Auto 1.4 % (2-4); Hematocrit 32.7 % (36-46); Hemoglobin 10.9 g/dL (12.0-16.0); Lymphocytes Absolute Auto 2100 /uL (1100-4500); Lymphocytes Percent Auto 25.4 % (25-40); Mean Corpuscular HGB Conc 33.4 % (30-36); Mean Corpuscular Hemoglobin 27.2 PG (26-34); Mean Corpuscular Volume 81.5 fL (80-100); Monocytes Absolute Auto 600 /uL (0-900); Monocytes Percent Auto 7.1 % (3-14); Neutrophils Absolute Auto 5500 /uL (1500-7000); Neutrophils Percent Auto 65.9 % (50-75); Platelet Count 195 X10^3/uL (150-400); Red Blood Cell Count 4.02 X10^6/uL (4.0-5.2); Red Cell Distribution Width 13.9 % (11.6-14.8); White Blood Cell Count 8.3 X10^3/uL (4.5-11.0)
[2023-04-06] MEDS: CALCIUM CARBONATE 500 MG TAB 1000 MG PO (09:13)
--- NOTE | 2023-04-06 12:40 | PM.OBPNLAB ---
Date/Time Date Patient Seen: 04/06/23 Time Patient Seen: 12:40 Pain Control Pain control: tolerating well and epidural Pelvic Exam Dilation (cm): 8 Effacement (%): 100 station: 0 Amniotic membrane status: Ruptured (AROM, clear fluid, 1238) Contractions Contractions on admission: irregular Monitor mode: External Pitocin rate (mU/min): 10 Contraction frequency (min): 3 Contraction duration (min): 1 Contraction pattern: Regular Contraction phase: Resting Contraction intensity: Strong/Firm Status status: Category l Heart Rate Baseline: 150 Monitor Accelerations: Present Monitor Decelerations: Absent Monitor Variability: Moderate Assessment and Plan Assessment: induction ongoing Plan: continuous present management Comments: Anticipate
--- NOTE | 2023-04-06 12:46 | P.PCN_ITS ---
Peripheral Nerve Block Note Pre-Procedure Reason for block: Attending surgeon request/order for post-op pain management (Labor Epidural requested by surgeon for labor and delivery) Pre-procedure checklist: Patient examined and chart reviewed, Risks, benefits, alternatives of block discussed, questions answered, Verification of anti- coagulation status, Site confirmed, Timeout performed and Standard ASA monitors applied Consent obtained from: Patient Procedure Date of procedure: 04/06/23 Start Time: 12:00 End Time: 14:05 Performed by: Rachel Galaviz Location: Other (Labor and delivery room 7) Position: Sitting (upright with supporting her) Laterality: Bilateral (Midline) Sterile Technique: Sterile barrier maintained, Sterile gloves, Mask, Sterile drapes and Chloraprep Skin Wheal: Lidocaine 1% (3 ml SQ to needle depth) mL: 3 Gauge: 25 Equipment Single injection - Needle brand, gauge, length: 18g Signiant epidural needle 3.5 inches Medications Medications - enter concentration (%) & mL in comment field: Bupivacaine (2mcg/ml fentanyl with bupivicaine 0.1% infusion started 1223) and Lidocaine (2% 4 ml with fentanyl 100mcg bolus dose) Test Dose: Negative (Lidocaine 1.5% with epi 1:200,000) Vital signs VS: 1157: 131/80 72 20 100% 1209: 130/80 76 18 100% 1215: 129/79 77 18 100% 1220: 109/73 77 16 100% 1225: 108/67 75 16 99%- 04/06/23 08:09 04/06/23 08:52 Temperature 97.0 F L Pulse Rate 96 H Blood Pressure 117/70 117/70 Events Nerve Block Events: Procedure uneventful (Prep 1200, local 12:04, catheter 1207, test dose 12:09, bolus dose 12:15, infusion started 12:23 easy TOM at 6 cm and catheter at 12cm at skin. Secured with tegaderm and minimal tape.) and Other (Negative CSF, blood or paresthesia with needle or catheter, needle removed intact. 1338 dosed with lidocaine 2% MPF 5 ml with patient sitting up for vaginal and pubic pain. Rate increased to 8 ml/hr)
[2023-04-06] MEDS: diphenhydrAMINE 50 MG/ML VIAL 12.5 MG IV (13:15)
[2023-04-06] MEDS: FENT 2MCG/ML BUPIV 0.1% EPI 200 MCG/100 ML PLAST..BAG 6 MCG EPIDURAL (13:15)
--- NOTE | 2023-04-06 14:39 | PM.OBPRVD ---
Labor & Delivery Delivery date: 04/06/23 Intrapartal Events: None Cervical ripening method: none Induction method: per pitocin protocol Delivery augmentation: rupture of membranes Delivery monitor: external FHT and external uterine Route of delivery: Episiotomy description: None L&D Laceration Description: Perineal - 2nd Degree Delivery repair: chromic Estimated blood loss (mL): 250 Anesthesia Type: Epidural Complications: None Narrative: Following a 6 minute 2nd stage of labor, the patient delivered spontaneously over an intact perineum a viable male infant with Apgars of 8/9, and a weight of 4093 g (9 lb 0.4 oz). A tight nuchal cord was reduced after delivery of the and skin to skin contact initiated immediately. Delayed cord clamping was performed and once the umbilical cord was doubly clamped and cut, a specimen of cord blood was obtained for routine studies. The the placenta was then delivered with gentle cord traction and suprapubic countertraction. Inspection of the placenta showed the placenta to be intact with a marginal insertion of the cord. Intravenous Pitocin was then initiated immediately with prompt control of bleeding. Inspection of the perineum showed a second-degree perineal laceration which was closed with 2-0 chromic in the usual manner under epidural anesthesia. Following completion of the delivery process, sponge and needle counts were performed which matched pre delivery counts. Both mother and were in good condition at the completion of the delivery process. [place] Baby 1: gender: Male Presentation: vertex Position: Left Occiput Anterior Placenta delivery description: Spontaneous Cord Vessel Description: 3 Vessels score (1 min): 8 score (5 min): 9 weight: 9 lb 0.376 oz Plan for aftercare: Routine care
[2023-04-06] MEDS: DERMOPLAST SPRAY 20% 60 ML 1 SPRAY TOP (23:19)
[2023-04-06] MEDS: LANOLIN OINT 7 GM 1 APPLIC TOP (23:20)
[2023-04-06] MEDS: IBUPROFEN 600 MG TABLET PO (23:20)
[2023-04-07 05:45] LABS: Add Manual Diff / Slide Review NO; Basophils Absolute Auto 0 /uL (0-100); Basophils Percent Auto 0.1 % (0-2); Eosinophils Absolute Auto 100 /uL (0-450); Eosinophils Percent Auto 1.1 % (2-4); Hematocrit 30.1 % (36-46); Hemoglobin 10.2 g/dL (12.0-16.0); Lymphocytes Absolute Auto 2100 /uL (1100-4500); Lymphocytes Percent Auto 19.1 % (25-40); Mean Corpuscular HGB Conc 33.9 % (30-36); Mean Corpuscular Hemoglobin 27.2 PG (26-34); Mean Corpuscular Volume 80.3 fL (80-100); Monocytes Absolute Auto 700 /uL (0-900); Monocytes Percent Auto 6.1 % (3-14); Neutrophils Absolute Auto 7900 /uL (1500-7000); Neutrophils Percent Auto 73.6 % (50-75); Platelet Count 192 X10^3/uL (150-400); Red Blood Cell Count 3.75 X10^6/uL (4.0-5.2); Red Cell Distribution Width 13.9 % (11.6-14.8); White Blood Cell Count 10.7 X10^3/uL (4.5-11.0)
--- NOTE | 2023-04-07 08:40 | P.DS_ITS ---
Discharge Providers Provider Date of admission: 04/06/23 07:49 Discharge Date: 04/07/23 Primary care physician: Lopez Da Silva MD Consults: 04/06/23 08:13 Consult to Anesthesiology Urgent Comment: Consulting Provider: Luca Hoffman Reason for consultation: Epidural Has provider been notified: No 04/07/23 14:36 Consult to Slitter Cut Off Operator Routine Comment: Discharge provider: Luca Hoffman MD Summary Hospital Course Date Patient Seen: 04/07/23 Time Patient Seen: 08:41 Diagnoses: Taryn was admitted on the morning of 04/06/2003 and Pitocin induction initiated. She progressed well with an epidural in placed and on the afternoon of 04/06/2023 delivered a viable male with Apgars of 8/9, weight of 4093 g (9 lb 0.4 oz). Following delivery both mother and baby have done extremely well with the mother experiencing prompt return of bowel and bladder function, she is ambulating independently, tolerating regular diet, and her pain is well controlled with oral pain medications. She will be discharged at this time to home in an afebrile normotensive condition after counseling regarding precautionary symptoms, limitations of activity, medications, and plans for follow-up which will be in 6 weeks. Medications at discharge will include resumption of all of her pre delivery medications. In addition she was prescribed hydroxyzine 25 mg capsules b.i.d./t.i.d. as needed for anxiety. Peripartum Data Delivery Method: Natural Vaginal Laceration Description: Vaginal - 2nd Degree Episiotomy description: None Procedures: Continuous lumbar epidural Spontaneous vaginal Repair of second-degree perineal laceration complications: none 1: Gender: Male Disposition of : home Status at Discharge Cognitive/behavioral status at discharge: oriented Functional status at discharge: independent ambulation Overall status at discharge: patient is progressing back to baseline Time Spent with Patient Time attestation: Total time spent providing and/or coordinating discharge services: Time spent: Less than 30 minutes Objective Labs 04/07/23 05:30 Labs: Laboratory Results - last 24 hr 04/06/23 04/06/23 04/07/23 08:05 08:05 05:30 WBC 8.3 10.7 RBC 4.02 3.75 L Hgb 10.9 L 10.2 L Hct 32.7 L 30.1 L MCV 81.5 80.3 MCH 27.2 27.2 MCHC 33.4 33.9 RDW 13.9 13.9 Plt Count 195 192 Neut % (Auto) 65.9 73.6 Lymph % (Auto) 25.4 19.1 L Saunders % (Auto) 7.1 6.1 Eos % (Auto) 1.4 L 1.1 L Baso % (Auto) 0.2 0.1 Neut # (Auto) 5500 7900 H Lymph # (Auto) 2100 2100 Saunders # (Auto) 600 700 Eos # (Auto) 100 100 Baso # (Auto) 0 0 Blood Type B Negative Antibody Screen Positive Antibody Identification Anti-D Maternal Bleed 04/07/23 05:30 WBC RBC Hgb Hct MCV MCH MCHC RDW Plt Count Neut % (Auto) Lymph % (Auto) Saunders % (Auto) Eos % (Auto) Baso % (Auto) Neut # (Auto) Lymph # (Auto) Saunders # (Auto) Eos # (Auto) Baso # (Auto) Blood Type Antibody Screen Antibody Identification Maternal Bleed Negative Exam Const General: cooperative and comfortable Nutritional Appearance: average body habitus Orientation: alert and oriented x3 HENMT Head: normal to inspection, atraumatic and abrasion Ears: hearing grossly normal bilaterally Face and sinus: face symmetric Eyes General: appearance normal, both eyes and all related structures Conjunctivae: conjunctivae normal Sclera: sclerae normal EOM: EOM intact bilaterally Neck Neck: normal visual inspection Resp Effort & Inspection: normal respiratory effort and able to speak in complete sentences Auscultation: clear to auscultation bilaterally Cardio Rate: regular rate Rhythm: regular rhythm Heart Sounds: S1 normal, S2 normal and no murmurs GI Inspection: normal to inspection Palpation: soft, no hepatosplenomegaly and tender (Minimal) External Female Exam: other (No significant bleeding noted) Extrem General: no calf tenderness Psych Appearance: grossly normal Mental Status: mental status grossly normal Speech and Movement: speech and movement normal Mood: congruent mood Affect: normal affect Attitude: cooperative Thought Process: normal Thought Content: normal Judgment: judgment good Discharge Plan Discharge Plan Patient Disposition: Home Provider Discharge Comment: Please review the written instructions you received when you were discharged from the hospital. Your follow-up appointment will be scheduled for 6 weeks after delivery and I look forward to seeing you then. If however in the meanwhile you have any issues, concerns, or questions, please contact the office at [phone] or via the patient portal. Discharge orders & Medications Prescriptions: New hydroxyzine pamoate 25 mg capsule 25 mg PO BID PRN (Reason: anxiety) Qty: 60 2RF Continued prenat.vits,oni,xiz-dtsa-ryzle Tablet 1 tab PO DAILY Zyrtec 10 mg tablet,disintegrating 10 mg PO DAILY ondansetron 4 mg tablet,disintegrating 4 mg PO Q6H PRN (Reason: nausea and vomiting) Qty: 20 1RF citalopram [Celexa] 20 mg tablet 20 mg PO DAILY Qty: 30 3RF albuterol sulfate 90 mcg/actuation aerosol powdr breath activated 1 inhalation INHALATION Q4-6H PRN (Reason: Wheezing) cholecalciferol (vitamin D3) 125 mcg (5,000 unit) capsule 125 mcg PO DAILY omega 3-bgr-osa-fish oil [Fish Oil] 1,200 (144-216) mg capsule 1 cap PO DAILY fwdlrjv-qadnedtsb-bphw 333-133-5 mg tablet 1 tab PO DAILY Discontinued labetalol 100 mg tablet 100 mg PO BID Qty: 60 10RF Follow up/Referrals: Lopez Da Silva MD [Primary Care Provider] - Luca Hoffman MD [Physician] - 05/18/23 8:45 am (Please follow-up with Dr. Denton araujo as scheduled!) Discharge Health Status Multidrug resistant organism: No MDRO Diet/Activity/Treatments Diet: Diet as Tolerated Activity: As tolerated Other treatments: Vbtp-cel-fmaajdt Tylenol and/or ibuprofen may be used for pain relief Skin/Wound/Dressing Care Report to your healthcare provider any signs of infection, such as:: chills, fever, increased pain, unusual drainage and unusual redness Dressing: N/A Visit Report/Discharge Packet Instructions: DI for Labor and Delivery, Vaginal , DI for and Nipple Soreness Discharge Data Primary Care Provider: Lopez Da Silva Discharges patient from system. Discharge Date/Time: 04/07/23 13:33
[2023-04-07] MEDS: RHO(D) IMMUNE GLOBULIN 1,500 UNIT SYRINGE 1500 UNIT IM (10:44)
[2023-04-07] MEDS: IBUPROFEN 600 MG TABLET PO (10:44)
[2023-04-07 13:37] VITALS: BP 106/76; PULSE 92; RESP 18; TEMP 37.1
== END 2023-04-07 13:33 | disposition home or self-care (01) | DRG 807 ==
PROVIDERS: Admitting Provider Obstetrics & Gynecology; PCP Family Medicine; Referring Provider Obstetrics & Gynecology; Visit Provider Obstetrics & Gynecology
DX: O70.1 Second degree perineal laceration during delivery (principal); Z37.0 Single live birth; Z3A.40 40 weeks gestation of pregnancy; Z67.21 Type B blood, Rh negative
CPT/HCPCS: 36415; 59050; 59400; 85025; 85461; 86850; 86870; 86900; 86901; G0379; J1200; J2590; J2790

== ENCOUNTER → 2025-05-31 10:41 | Outpatient (CLI) | payer OTHER, SELFPAY ==
[2025-06-03 13:36] LABS: Gest Age on Col Date 17.6 weeks (.); OSBR Risk 1IN 10000 (.)
== END ==
PROVIDERS: PCP Family Medicine; Referring Provider Obstetrics & Gynecology; Visit Provider Obstetrics & Gynecology
DX: Z36.0 Encounter for antenatal screening for chromosomal anomalies (principal)
CPT/HCPCS: 36415; 82105

== ENCOUNTER → 2025-06-14 12:02 | Outpatient (CLI) | payer OTHER, SELFPAY ==
--- NOTE | 2025-06-14 12:03 | DI.US.S_ITS ---
PROCEDURE: US OB >= 14 WEEKS FETUS INDICATIONS: 20 weeks anatomy scan OUTSIDE/PRIOR DATING DATA: Last menstrual period (LMP): 01/28/2025. LMP-based estimated date of delivery (SHABNAM): 11/05/2025. First dating scan (date and location): 04/02/2025. Estimated date of delivery (SHABNAM) from first dating scan: 11/04/2025. TECHNIQUE: Real-time scanning was performed of the fetus, with image documentation and biometric measurements. COMPARISON: [facility], , OB <= 14 WEEKS FETUS, 04/02/2025, 14:03. FINDINGS: General: A single living intrauterine gestation is present. Presentation: Vertex. Placenta: Placental position is anterior , without previa. Amniotic fluid index: 11.3 cm, normal range is 5-24 cm. Single deepest vertical pocket is 3.7 cm. heart rate: 139 beats per minute. Maternal cervical canal: 3.3 cm long. Normal lower limit is 2.5 cm. biometrics: Biparietal diameter: 4.5 cm, 19 weeks and 4 days Head circumference: 16.9 cm, 19 weeks and 4 days Abdominal circumference: 13.5 cm, 19 weeks Femur length: 3.1 cm, 19 weeks and 5 days Clinically estimated gestational age: 19 weeks and 3 days Composite gestational age from present scan: 19 weeks and 3 days Estimated weight and percentile: 288 g 41% Anatomic survey: Neuro: Ventricles are non-dilated at less than 10 mm. Cisterna magna is normal at 3-11 mm. Cerebellum is normal in size and morphology. Nuchal skin fold: Normal at less than 6 mm between 14-21 weeks gestational age. Face: Profile not well seen, particularly the mandible. Nose lips unremarkable Spine: No evidence for spina bifida. Heart: 4-chambered heart is present, with normal ventricular outflow tracts. Diaphragm: Diaphragm is intact. Stomach: Left-sided stomach is present. Kidneys: No hydronephrosis. Normal is less than 5 mm in 2nd trimester, less than 7 mm in 3rd trimester. Cord: 3-vessel cord has orthotopic insertion. Bladder: Normal in size. Extremities: All 4 extremities identified. IMPRESSION: Intrauterine gestation with cardiac motion in vertex presentation. Normal HARISH. EFW within normal limits, at the 41 percentile. The profile was not well seen, in particular the mandible. Short interval follow-up recommended. This may relate to early gestational age and imaging position, although differential includes micrognathia. No significant abnormalities otherwise on routine anatomic survey Dictated by: Tomas Sharif M.D. on 06/14/2025 at 13:23 Approved by: Tomas Sharif M.D. on 06/14/2025 at 13:27
== END ==
LOC: US 12:03
PROVIDERS: PCP Family Medicine; Referring Provider Obstetrics & Gynecology; Visit Provider Obstetrics & Gynecology
DX: Z36.0 Encounter for antenatal screening for chromosomal anomalies (principal); Z3A.19 19 weeks gestation of pregnancy
CPT/HCPCS: 76811

== ENCOUNTER → 2025-07-05 11:01 | Outpatient (CLI) | payer OTHER, SELFPAY ==
--- NOTE | 2025-07-05 11:01 | DI.US.S_ITS ---
PROCEDURE: US OB FOLLOW UP INDICATIONS: complete images of profile including madible OUTSIDE/PRIOR DATING DATA: Last menstrual period (LMP): 01/28/2025. LMP-based estimated date of delivery (SHABNAM): 11/05/2025. First dating scan (date and location): 04/02/2025. Estimated date of delivery (SHABNAM) from first dating scan: 11/04/2025. TECHNIQUE: Real-time scanning was performed of the fetus, with image documentation and biometric measurements. Endovaginal scanning: Not obtained COMPARISON: [facility], US, US OB >= 14 WEEKS FETUS, 06/14/2025, 12:13. FINDINGS: General: A single living intrauterine gestation is present. Presentation: Breech Placenta: Placental position is anterior , without previa. Amniotic fluid index: 10.2 cm, normal range is 5-24 cm. Single deepest vertical pocket is 3.1 cm. heart rate: 150 beats per minute. Maternal cervical canal: 3.7 cm long. Normal lower limit is 2.5 cm. biometrics: Clinically estimated gestational age: 22 weeks 3 days Other: Profile, lips and nose are within normal limits. IMPRESSION: Single live intrauterine with gestational age today of 22 weeks 3 days. Follow-up imaging of profile, lips and nose are within normal limits. We strive to produce accurate, complete, and clear reports of imaging services. To assist us in improving patient care, this report was composed using standard report templates and voice recognition software. Therefore, it may contain abnormal punctuation, insertions and/or omissions. Occasional wrong-word or sound-alike substitutions may occur. Though we review the report and make efforts to correct it, we do recommend that the report be read carefully in proper context to recognize any text inaccuracies. Dictated by: Misa Francis M.D. on 07/06/2025 at 16:27 Approved by: Misa Francis M.D. on 07/06/2025 at 16:29
== END ==
LOC: US 11:01
PROVIDERS: PCP Family Medicine; Referring Provider Obstetrics & Gynecology; Visit Provider Obstetrics & Gynecology
DX: Z34.82 Encounter for supervision of other normal pregnancy, second trimester (principal); Z3A.22 22 weeks gestation of pregnancy
CPT/HCPCS: 76816

== ENCOUNTER → 2025-07-16 14:58 | Outpatient (CLI) | payer OTHER, SELFPAY | PROVIDERS: PCP Family Medicine; Visit Provider Obstetrics & Gynecology | DX: N89.8 Other specified noninflammatory disorders of vagina (principal) | CPT/HCPCS: 81514 ==

== ENCOUNTER → 2025-07-26 10:53 | Outpatient (CLI) | payer OTHER, SELFPAY ==
[2025-07-26 12:37] LABS: Hematocrit 33.5 % (36-46); Hemoglobin 11.8 g/dL (12.0-16.0)
[2025-07-26 13:11] LABS: GTT (PREG) 1 Hour PP 50gm Dose 122 mg/dL (76-139)
[2025-07-26 13:46] LABS: Ferritin 7 ng/mL (6-137)
== END ==
PROVIDERS: PCP Family Medicine; Referring Provider Obstetrics & Gynecology; Visit Provider Obstetrics & Gynecology
DX: Z13.1 Encounter for screening for diabetes mellitus (principal); Z13.0 Encounter for screening for diseases of the blood and blood-forming organs and certain disorders involving the immune mechanism; Z34.80 Encounter for supervision of other normal pregnancy, unspecified trimester; Z67.91 Unspecified blood type, Rh negative
CPT/HCPCS: 36415; 82728; 82950; 85014; 85018; 86850